=== PATIENT | female | born 1975 | race Caucasian/White ===

== ENCOUNTER 2022-11-22 08:54 | Outpatient (CLI) | payer BC, SELFPAY | END 2022-11-22 08:55 | disposition home or self-care (01) | PROVIDERS: PCP Nurse Practitioner Family; Visit Provider Nurse Practitioner Family | DX: R35.0 Frequency of micturition (principal); R35.1 Nocturia; M25.50 Pain in unspecified joint | CPT/HCPCS: 80048; 85651; 86039; 86140; 86431; 87086; 87798 ==